=== PATIENT | male | born 1960 | race Caucasian/White ===

== ENCOUNTER 2017-09-01 06:16 | Day surgery (SDC) | payer MEDICAID ==
[2017-09-01] MEDS ORDERED: Bupivacaine 0.5% 50 ML MDV ONE (06:39)
[2017-09-01] MEDS ORDERED: Lidocaine 1% with EPINEPHrine 1:100,000 50 ML MDV ONE (06:39)
[2017-09-01] MEDS ORDERED: Lactated Ringers 1,000 ML IV SCH (07:00)
[2017-09-01] MEDS ORDERED: Propofol 200 MG/20 ML SDV ONE ×4 (07:26→08:41)
[2017-09-01] MEDS ORDERED: Midazolam 1 MG/ML 2 ML SDV ONE (07:26)
[2017-09-01] MEDS ORDERED: fentaNYL 100 MCG/2 ML SDV ONE ×2 (07:26→08:01)
[2017-09-01] MEDS ORDERED: Sodium Chloride 0.9% 1,000 ML IV SCH (07:30)
[2017-09-01] MEDS ORDERED: metroNIDAZOLE/Normal Saline 500 MG in Premix Bag 1 BAG IV ONE (07:30)
[2017-09-01] MEDS ORDERED: ceFAZolin 2 GM in Premix Bag 1 BAG IV ONE (07:30)
[2017-09-01] MEDS ORDERED: Ropivacaine 46 ML, Dexamethasone 8 MG, EPINEPHrine 0.4 MG, Sodium Chloride 0.9% 31.6 ML NERVRT SCH ×4 (07:45)
[2017-09-01] MEDS ORDERED: Acetaminophen/oxyCODONE 325-5 MG Tab PO PRN (10:00)
--- NOTE | 2017-09-01 13:52 | OR ---
DATE OF PROCEDURE: 09/01/2017 PROCEDURE: Transversus abdominis plane block, right. COMPLICATIONS: None. MEDICAL STAFF PHYSICIAN: None. PREOPERATIVE DIAGNOSIS: Pain requirement for inguinal hernia. POSTOPERATIVE DIAGNOSIS: Pain requirement inguinal hernia. RISKS: Risks, benefits, alternatives, and limitations including, but not limited to infection, bleeding, and injury to nerves and blood vascular structures and possible intravascular injection was explained to the patient, who wished to proceed. PROCEDURE IN DETAIL: The patient was placed in supine position. The right hip was prepped and draped. Using the variable 11 megahertz probe and using the biopsy guide, the 20-gauge needle was advanced to the area of the transversus abdominis in the proper margin. A saline block test of 5 mL was first aspirated, then injected to ensure correct plane. Then the mixture of lidocaine, epinephrine, and other solutions were injected into this plane under direct ultrasound guidance. The patient tolerated the procedure well. Deangelo Juarez MD /[id number]
--- NOTE | 2017-09-01 14:01 | OR ---
DATE OF PROCEDURE: 09/01/2017 PROCEDURE: Right inguinal hernia repair, open. COMPLICATIONS: None. TRAVELING BUYER: None. ANESTHESIA: MAC/local. INDICATIONS: This is a 56-year-old male with a very large inguinal hernia, requiring open hernia repair. Risks, benefits, alternatives, and limitations including, but not limited to infection and bleeding were explained to the patient, and they wished to proceed. PROCEDURE IN DETAIL: The patient was placed in supine position. The repair would be in a classic right groin incision with a [id number] system. The pubic symphysis was identified, along with the iliac crest, and a curvilinear incision approximately 3 to 4 cm in size was made. This was then carried down with electrocautery to the external oblique aponeurosis. The external oblique aponeurosis was then opened using an inverted 15 blade and subsequently with Metzenbaum scissors. The hernia was identified and noted to be quite large and quite adhered to the cord structure. Eventually, the cord structure, along with the hernia, was isolated with a [place] drain, and then the hernia defect would be over the next 15 minutes using gentle meticulous dissection. This hernia sac was again quite large, and this would be ligated in a high-ligation fashion. This was performed by opening the hernia sac, inspecting for contents, of which none were noted. Two Caitlin clamps were then used to clamp and then subsequently transect and then suture-ligate with 3-0 Vicryl suture. This was then placed down into the indirect inguinal hernia defect, and then a large plug and patch system was sewed in approximately every 5 mm to 1 cm width, with 0 Vicryl interrupted sutures. The tails were made around the cord structures, united and sutured on the proximal aspect. This was then thoroughly irrigated. The external oblique aponeurosis was then reapproximated with 3-0 Vicryl. Subcutaneous tissues were closed with 3-0 Vicryl, the skin was closed with 4-0 Vicryl, and Dermabond was applied. The patient tolerated the procedure well. Deangelo Juarez MD /[id number]
== END 2017-09-01 10:50 | disposition home or self-care (01) ==
LOC: JP.SDS 06:16
PROVIDERS: ATTEND Surgery
DX: K40.90 Unilateral inguinal hernia, without obstruction or gangrene, not specified as recurrent (principal)
CPT/HCPCS: 49505; 76998; A9270; C1781; J0690; J2250; J2704; J2795; J3010